=== PATIENT | female | born 2005 | race Caucasian/White ===

== ENCOUNTER 2024-12-09 08:13 | Outpatient (CLI) | payer BC, SELFPAY ==
--- NOTE | ~2024-12-09 | US_ITS ---
US breast BI limited 12/09/2024 08:36 Indication: Palpable breast lumps. Procedure: High-resolution Limited bilateral breast ultrasound Comparison: No prior studies for comparison. Findings: Right breast: At 2:00, 5 cm from the nipple there is an irregular shaped hypoechoic mass with heterog eneous internal echotexture measuring 1.5 x 0.8 x 1.5 cm. There is an echogenic internal component wi th subtle posterior shadowing. Left breast: At 10:00, 5 cm from the nipple there is an oval hypoechoic parallel oriented mass measur ing 1.6 x 1.4 x 0.9 cm without internal vascularity. There is posterior acoustic enhancement. Impression: 1: Bilateral masses corresponding to the areas of palpable concern. Recommend comparison to previous outside studies to assess stability. BI-RADS CATEGORY 0 - INCOMPLETE STUDY, NEED ADDITIONAL IMAGING EVALUATION. Reviewed, dictated and finalized at location [] Impression: 1: Bilateral masses corresponding to the areas of palpable concern. Recommend c omparison to previous outside studies to assess stability. BI-RADS CATEGORY 0 - INCOMPLETE STUDY, NEED ADDITIONAL IMAGING EVALUATION.
== END 2024-12-09 08:14 | disposition home or self-care (01) ==
LOC: MICIMG 08:13
PROVIDERS: PCP Obstetrics & Gynecology; Visit Provider Obstetrics & Gynecology
DX: R92.8 Other abnormal and inconclusive findings on diagnostic imaging of breast (principal)
CPT/HCPCS: 76642

== ENCOUNTER 2025-05-10 14:02 | Emergency (ER) | payer BC, SELFPAY ==
--- OUTSIDE RECORDS SUMMARY | 2025-04-08 05:44 | XMS_ITS | Continuity of Care Document ---
Author Organization [facility] Address [address] [place] [address] Phone Care Team Providers Care Senior Integration Architect Name Role Phone Skip SUAREZ, Tucker Unavailable Unavailable Allergies, Adverse Reactions, Alerts Substance Reaction Status Criticality DIPHENHYDRAMINE HCL Increased sedation Active No Information azithromycin HivesHives Active No Information Medications Medication Instructions Dosage Effective Dates (start - stop) Status Comments budesonide-formoter ol HFA 80 mcg-4.5 mcg/actuation aerosol inhaler inhale 2 puff by inhalation route 2 times every day in the morning and evening 2.00 puff - Active albuterol sulfate HFA 90 mcg/actuation aerosol inhaler inhale 2 puff by Inhalation route every 4 - 6 hours as needed 2 puff - Active Asmanex HFA 50 mcg/actuation aerosol inhaler inhale 2 puffs by inhalation route 2 times every day 2 puffs - Active Flonase Allergy Relief 50 mcg/actuation nasal spray,suspension spray 2 spray by intranasal route every day in each nostril 100-100 MCG - Active triamcinolone acetonide 0.1 % topical ointment apply by topical route 2 times every day a thin layer to the affected area(s) 0.00 - Active mesalamine 400 mg capsule (with delayed release tablets inside) take 1 capsule by oral route 2 times every day - Active fluoxetine 10 mg capsule take 1 capsule by oral route every day 10 MG - Active Cherrie Allergy 180 mg tablet take 1 tablet by oral route 2 times every day 180 MG - Active lamotrigine ER 50 mg tablet,extended release 24 hr - Active Symbicort 80 mcg-4.5 mcg/actuation HFA aerosol inhaler inhale 2 puff by inhalation route 2 times every day in the morning and evening 2.00 puff - No Longer Active Procedures Procedure Date Health Risk Assesment Patient Focused Au Est (Level 4) OFFICE/OUTPATIENT VISIT Au PF Pre/Post Bronchodlator Health Risk Assesment Patient Focused Ma Mouth piece Est (Level 4) OFFICE/OUTPATIENT VISIT Nj Flow Volume Loop Mouth piece Perc Test Intradermal Test New (Level 4) OFFICE/OUTPATIENT VISIT DENTAL RECEPTIONIST Registration Fee Advance Directives Directive Yes / No Effective Date File Name No Information Encounters Encounter Description Practice Location Reason(s) For Visit Diagnoses Date Provider Providers Copied on Encounter [facility], [address] [place] [address], [id number], tel:[phone] [facility] No Information Skip Ceballos. [address], [place], [address], [place]. tel:[phone] Referring Provider: Radha Dubon, [address], [place], [address]. tel:[phone] Est (Level 4) OFFICE/OUTPA TIENT VISIT [facility], [address] [place] [address], [id number], tel:[phone] [facility] allergies and asthma (chief complaint) Other allergic rhinitisMild intermittent asthma, uncomplicatedAto pic dermatitis Maddie Zacarias. [address], [place], [address], [place]. tel:[phone] Referring Provider: Radha Dubon, [address], [place], [address]. tel:[phone] [facility], [address] [place] [address], [id number], tel:[phone] [facility] No Information 5 Skip Cheshil. [address], [place], [place], [facility], [place]. tel:[phone] Referring Provider: Maximilian Metcalf, [address] [place] [address] [address], [place], [address]. tel:[phone] Est (Level 4) OFFICE/OUTPA TIENT VISIT [facility], [address] [place] [address], [id number], tel:[phone] [facility] allergy symptoms (chief complaint) Other allergic rhinitisMild intermittent asthma, uncomplicatedAto pic dermatitisBody mass index (BMI) 25.0-25.9, adultAcute sinusitis, unspecified 5 Maddie Zacarias. [address], [place], [address], [place]. tel:[phone] Referring Provider: Maximilian Metcalf, Replaced by [facility], [place], [address]. tel:[phone] New (Level 4) OFFICE/OUTPA TIENT VISIT [facility], [address] [place] [address], [id number], [place] tel:[phone] [facility] allergy symptoms (chief complaint) Chronic rhinitisMild intermittent asthma, uncomplicatedAto pic dermatitis Fe- 4 Skip Cheshil. [address], [place], [address], [place]. tel:[phone] Referring Provider: Radha Dubon, [address], [place], [address]. tel:[phone] [facility], [address] [place] [address], [id number], tel:[phone] [facility] No Information [facility]. . Referring Provider: [address], [place], [address]. tel:[phone] Family History Family Member Type Diagnosis Age At Onset Father Problem (finding) Seasonal allergy Father Problem (finding) Environmental allergy Grandmother Problem (finding) Cystic fibrosis Father Problem (finding) Asthma Mother Problem (finding) Seasonal allergy Mother Problem (finding) Environmental allergy Mother Problem (finding) Cystic fibrosis Payers Payer name Insurance type Covered alliance party ID Authoriza tidinora(s) RUST [id number] Social History Type Description Quantity Date Captured Comments Alcohol Use Details Unknown Caffeine Use Details Unknown Tobacco Use Status No Information Smoking Status No Information Sex Female Gender Identity Chief Complaint And Reason For Visit No Information Reason For Referral Reason For Referral No Information Plan Of Treatment Date Type Action Status Appointment Martha Tubbs 3 Mo F/up BOOKED History Of Present Illness Encounter Date Complaint History Of Prese nt Illness allergies and asthma LV 01/02/25LU has a history of rhinitis, asthma, and eczemaRhinitisThe patient has a history of perennial rhinitis with seasonal worsening in spring/fall. Reports that her allergies have been bothersome recently, for the past several weeks and she has been using cherrie daily, and continues to have congestion, postnasal drip, itchy throat. Reports using flonase in the past, however, this has made her nose runny, so she stopped using it. Has never tried azelastine nasal spray in the past. Was previously on singulair, which gave her mood changes so she stopped it about a year ago. Denies fever or chills. Was last on augmentin in 12/2024 for suspected sinusitis.AsthmaThe patient has asthma and is on airsupra, which she is taking just as needed prior to activity. They were diagnosed with asthma at age 16 yo. The patient has never been hospitalized for asthma. She is using her rescue inhaler anywhere from 2-4 times weekly. Denies nocturnal awakenings with cough/wheeze. No ED/PCP/UC visits and no oral steroid bursts because of asthma in the last year.Atopic DermatitisThe patient states that her eczema is well controlled at this time. She uses TAC 0.1% ointment, which is used as needed for flares, but has not used this in over 6 months. Patient bathes daily. Tide & Downy is used as a laundry detergent. She does use fabric softener. Avoiding irritants/ allergens helps to control her eczema flares.DataPercutaneous allergy testing on 10/24/23 was positive for trees, grasses, weeds, molds, horse, and mouse with positive histamine and negative diluent controls. Intradermal testing was positive for ragweed, mold, and dog with a negative diluent controlSpirometry 10/24/23 normal/04/21PFT Mild airway obstruction. Post bronchodilator test improved with FEV1 improved from 80% to 91% predicted allergy symptoms LV 10/24/2023LU has a history of rhinitis, asthma, and eczemaRhinitisThe patient has a history of perennial rhinitis with seasonal worsening in spring/fall. Reports that her allergies have been awful recently, for the past several weeks and she has been using cherrie daily, and continues to have itchy/watery eyes, congestion, postnasal drip, shortness of breath, and extreme fatigue. She is also using visine eye drops daily for ocular pruritis. Reports using flonase in the past, however, this has made her nose runny, so she stopped using it. Has never tried azelastine nasal spray in the past. Was recently on keflex for cellulitis of her toe/ paronychia, No interval use of steroids or abx for sinusitis. Was previously on singulair, which gave her mood changes so she stopped it about a year ago. Denies fever or chills.AsthmaThe patient has asthma and is on airsupra, which she is taking just as needed prior to activity. They were diagnosed with asthma at age 16 yo. The patient has never been hospitalized for asthma. She reports EIB and symptoms worsened in cold weather. They deny nocturnal awakenings with cough/wheeze. No ED/PCP/UC visits and no oral steroid bursts because of asthma in the last year.Atopic DermatitisThe patient states that her eczema is well controlled at this time. She uses TAC 0.1% ointment, which is used as needed for flares, but has not used this in over 6 months. Patient bathes daily. Tide & Downy is used as a laundry detergent. She does use fabric softener. Avoiding irritants/ allergens helps to control her eczema flares.DataPercutaneous allergy testing on 10/24/23 was positive for trees, grasses, weeds, molds, horse, and mouse with positive histamine and negative diluent controls. Intradermal testing was positive for ragweed, mold, and dog with a negative diluent controlSpirometry 10/24/23 normal allergy symptoms RhinitisThe pat celso has a history of perennial rhinitis with seasonal worsening in spring/fall. The symptoms include nasal congestion, facial pressure, post-nasal drainage w/ ocular pruritus and tearing. Currently, the patient is on fexofenadine (cherrie) 180 mg daily (held x 7 days), montelukast (singulair) 10 mg daily, Flonase 2 SEN PRN (used about once or twice monthly), which does not provide adequate relief. The patient does have a history sinus infections, about 1-2 times per year requiring abx.She has never had allergy testing in the past.AsthmaThe patient has asthma on montelukast (singulair) 10 mg daily, and albuterol PRN (used prior to exertion). They were diagnosed with asthma at age 16 yo. The patient has never been hospitalized for asthma. She reports EIB and symptoms worsened in cold weather. They deny nocturnal awakenings with cough/wheeze. No ED/PCP/UC visits and no oral steroid bursts because of asthma in the last year.Atopic DermatitisThe patient has lesions on AC fossae, popliteal fossae. They use Cetaphil as a moisturizer, used daily. They also have TAC 0.1% ointment, which is used as needed for flares. Patient bathes daily. Tide & Downy is used as a laundry detergent. She does use fabric softener. PMH: anxiety, CF, otherwise as abovePSH: wisdom teeth extractionMedication Allergies:Azithromycin - Hives when a baby. She had generalized urticaria quickly after the first dose. Benadryl - increased sedationFHAsthma - ?dadRhinitis - momCF - mom, mat GMSHTobacco: Never smoker or vaperOccupation: CNAJunior in College at [employer], studying nursingEnvironmental HistoryLives in a house (built 1949) w/ central air/forced heat, w/o evidence of mold/water damageFlooring in Bedroom: hard flooringPets: dogs x 2DataI reviewed outside records available in the EMR Functional Status Date Functional Assessmen t No Information Instructions Date Instruction Additional Infor brenda Giving encouragement to exercise Related to Body mass index [BMI] 25.0-25.9, adult Skin Care Instructio ns====*Please use moisturizers on skin 4-6 times per day*Please bathe once per day. Soak for 20-30 minutes in lukewarm water. After bathing, dry off only partially by patting with a towel. Within 3 minutes, apply topical medication to red, itchy areas. Apply moisturizers to other areas*Use topical medications 1-2 times daily on flared (red/itchy) skin; you may use these topical medications twice weekly on healthy skin in locations that typically flare (ex: ankles, crook of elbow) to prevent flares====Products (as recommended to me by my patients):*Please try to use products that are scent-free or fragrance-free. Products labeled unscented sometimes use additives to neutralize a scent*Moisturizers: plain Vaseline (petrolatum or petroleum jelly), Cetaphil lotion, Aquaphor, or Vanicream*Laundry Detergents: Free & Clear labeled such as All or 7th Generation*Soaps: Dove Sensitive Skin Bar Soap, Vanicream bar soap, Cetaphil Cleanser Related to Atopic dermatitis - use Flonase 2 spra ys each nostril daily- resume cherrie 180 mg daily- Please remember to point the nasal spray away from the nasal septum, up and outwards towards the top of the ears on both sides- if nose bleeding occurs, please hold the nasal spray for 2-3 days to allow for healing of the nasal tissue (you may use nasal saline gel or vaseline on a q-tip to help heal the tissue), then restart the nasal spray.- If nose bleeding recurs, please stop the nasal spray and contact our office to set up an appointment for further guidance Related to Chronic rhinitis - use Airsupra 2 puf fs every 4 hours as needed for cough, wheeze, and shortness of breath. Also, use 2 puffs 20 min before exercise (do not use more than 12 puffs in 24 hours) Related to Mild intermittent asthma, uncomplicated Assessments Type Assessment Date No Information Patient Care Teams Name Effective Dates (start - stop) Status Members No Information
[2025-05-10] VITALS (7 sets, daily range): BP systolic 105–167; BP diastolic 61–98; PULSE 83–134; RESP 15–22; TEMP 36.6–36.8; O2SAT 98–100
--- NOTE | ~2025-05-10 | XR_ITS ---
EXAMINATION: XR chest 2V, 05/10/2025 14:55 CDT HISTORY: sob COMPARISON: No comparisons available. Technique: 2 views obtained. Findings: The lungs are clear, no effusion. No pneumothorax. Heart is normal size. Mediastinal and hilar contours are within normal limits. Bony thorax no acute abnormality. Impression: No acute cardiopulmonary abnormality. Reviewed, dictated and finalized at location A. Impression: No acute cardiopulmonary abnormality.
--- OUTSIDE RECORDS SUMMARY | 2025-05-10 14:04 | XMS_ITS | Encounter Summary ---
Author Organization [facility] Address [address] [place] [address] Care Team Providers Care Mud Trucker Name Role Phone Oscar Blake MD Primary Care Provider [phone] Encounter Details Date Type Department Care Team (Late Contact Info) Description 02/17/2025 [employer] Message Enc [address], [address] [place] [phone] Mychart, [facility] Provider evie Social History Tobacco Use Types Packs/Day Years Used Date Smoking Tobacco: Never Smokeless Tobacco: Never Alcohol Use Standard Drinks/Week Comments Never 0 (1 standard drink = 0.6 oz pur e alcohol) PHQ-2 Answer Date Recorded Patient Health Questionnaire-2 Score 0 02/12/2025 Comments No Sex and Gender Information Value Date Recorded Sex Assigned at Female 09/19/2024 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 [place] [address] Keith Garrett MD [address] [place] [address] documented as of this encounter Visit Diagnoses Not on filedocumented in this encounter Additional Health Concerns Assessment Noted Time PHQ-9 Depression Total Score: 21 024 1:19 PM CDT documented as of this encounter Care Teams Mud Trucker Relationship Specialty Start Date End Date Oscar Blake MD [address] [place] [address] PCP - General INTERNAL MEDICINE 10/13/23 documented as of this encounter
--- OUTSIDE RECORDS SUMMARY | 2025-05-10 14:04 | XMS_ITS | Encounter Summary ---
Author Organization [facility] Address [address] [place] [address] Care Team Providers Care In Store Marketing Associate Name Role Phone Oscar Blake MD Primary Care Provider [phone] Encounter Details Date Type Department Care Team (Late Contact Info) Description 01/14/[address] Message Enc [facility] [address], [address] [place] [phone] Mychart, 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 Family & Internal Medicine - [address] [phone] Oscar Blake MD [address] [place] [address] 02/11/2026 1:40 PM CDT Office Visit [facility] [address] [place] [address] Keith Garrett MD [address] [place] [address] documented as of this encounter Visit Diagnoses Not on filedocumented in this encounter Additional Health Concerns Infection Onset Date Last Indicated Resolved Time Respiratory Rule Out 02/06/2025 02/06/2025 025 2:10 PM CDT Assessment Noted Time PHQ-9 Depression Total Score: 21 024 1:19 PM CDT documented as of this encounter Care Teams In Store Marketing Associate Relationship Specialty Start Date End Date Oscar Blake MD [address] [place] [address] PCP - General INTERNAL MEDICINE 10/13/23 documented as of this encounter
--- OUTSIDE RECORDS SUMMARY | 2025-05-10 14:04 | XMS_ITS | Clinical Summary ---
Author Organization [facility] Address [address] [place] [address] Care Team Providers Care Director Of Automation Name Role Phone Oscar Blake MD Primary Care Provider [phone] Allergies Active Allergy Reactions Criticality Noted Date Comments Erythromycin Rash Medium 01/25/2017 Rash Medications albuterol HFA (PROVENTIL HFA,VENTOLIN HFA,PROAIR HFA) 90 mcg/actuation inhaler INHALE 2 PUFFS BY MOUTH UP TO EVERY 4 HOURS BEFORE EXERCISE NEEDED 02/16/20 23 Active Allergy Relief, fexofenadine, 180 mg tablet TAKE 1 TABLET BY MOUTH EVERY DAY FOR 90 DAYS 04/14/20 23 Active albuterol-budeson adriano (Airsupra) 90-80 mcg/actuation HFA aerosol inhaler Inhale 2 puffs every 6 (six) hours as needed Active SUMAtriptan (IMITREX) 100 mg tablet Take 1 tablet at onset of symptoms, may repeat in 2 hours later if needed. Max of 2 tablets in 24-hour period. 03/29/20 24 Active buPROPion XL (WELLBUTRIN XL) 300 mg 24 hr tablet 05/19/20 24 Active copper (PARAGARD) 380 square mm IUDIndications:Pr egnancy Contraception 1 each by intrauterine route once Active ibuprofen (ADVIL,MOTRIN) 600 mg tablet Take 1 tablet (600 mg total) by mouth every 6 (six) hours as needed for pain 30 tablet 07/14/20 24 Active gabapentin (NEURONTIN) 100 mg capsule TAKE 1 TO 2 CAPSULES BY MOUTH DAILY NEEDED FOR ANXIETY 07/23/20 24 Active lamoTRIgine (LaMICtal) 25 mg tablet Take 1 tablet (25 mg total) by mouth 2 (two) times a day 07/18/20 24 Active medroxyPROGESTERo ne (PROVERA) 10 mg tablet Take 1 tablet (10 mg total) by mouth daily 30 tablet 08/19/20 24 025 Active Active Problems Problem Noted Date Diagnosed Date Dermoid cyst of ovary 07/14/2024 Sensation of fullness in both ears 02/07/2022 Impacted cerumen of left ear 02/07/2022 Dysmenorrhea 12/11/2020 Surgical History Surgery Date Site/Laterality Comments WISDOM TOOTH EXTRACTION BREAST BIOPSY 04/05/2023 Right BREAST BIOPSY 04/05/2023 Right Medical History Medical History Date Comments Allergic rhinitis Anxiety and depression Family History Medical History Relation Name Comments No Known Problems Father Pancreatic cancer Maternal Grandfather No Known Problems Mother Colon cancer Other M great grandfether Breast cancer Neg Hx Diabetes Neg Hx Hypertension Neg Hx Ovarian cancer Neg Hx Prostate cancer Neg Hx Uterine cancer Neg Hx Relation Name Status Comments Father Maternal Grandfather Maternal Great-Grandfather Alive Mother Other M great grandfether Alive Social History Tobacco Use Types Packs/Day Years Used Date Smoking Tobacco: Never Smokeless Tobacco: Never Tobacco Cessation:Counseling Given: Not Answered Personal Safety Answer Date Recorded Have you ever been in or are you currently in a harmful physical or emotional relationship or is someone making you feel afraid or unsafe? Denies 07/14/2024 Comments No Sex and Gender Information Value Date Recorded Sex Assigned at Not on file Legal Sex Female 8:45 AM CDT Gender Identity Female 12/11/2020 2:09 PM CDT Sexual Orientation Straight 12/11/2020 2: 09 PM CDT Obstetrics History Para Term AB IAB SAB Ectopic Multiple Livin g Live Births 0 0 0 0 0 0 0 0 0 0 0 Comments Age of 1st cycle: 8 Last Filed Vital Signs Vital Sign Reading Time Taken Comments Blood Pressure 120/82 07/29/2024 1:54 PM RUBBER GASKET INSPECTOR TRIMMER Pulse 75 07/14/2024 6:45 PM RUBBER GASKET INSPECTOR TRIMMER Temperature 37.4 C (99.4 F) 07/14/2024 6:15 PM RUBBER GASKET INSPECTOR TRIMMER Respiratory Rate 19 07/14/2024 6:15 PM RUBBER GASKET INSPECTOR TRIMMER Oxygen Saturation 100% 07/14/2024 6:45 PM RUBBER GASKET INSPECTOR TRIMMER Inhaled Oxygen Concentration - - Weight 65.3 kg (144 lb) 07/29/2024 1:54 PM RUBBER GASKET INSPECTOR TRIMMER Height 160 cm (5' 3) 07/29/2024 1:54 PM RUBBER GASKET INSPECTOR TRIMMER Body Mass Index 25.51 07/29/2024 1:54 PM RUBBER GASKET INSPECTOR TRIMMER Plan of Treatment Health Maintenance Due Date Last Done Comments Cervical Cancer Screening 2003 Depression Screening 2003 Pneumococcal vaccine <65 (1 of 1 - PPSV23, PCV20, or PCV21) 2009 05/11/2004, 02/09/2004, 2003, Additional history exists HPV Vaccines (1 - 3-dose series) 2018 Chlamydia and Gonorrhea (GC/ CT) Screening 05/24/2024 05/24/2023, 06/30/2022 Regular Well Visit/Exam 18-64 05/24/2024 05/24/2023, 01/25/2022 DTaP/Tdap/Td Vaccine (7 - Td or Tdap) 04/16/2025 04/16/2015, 04/06/2009, 11/09/2004, Additional history exists Covid-19 Vaccine (4 - 2024-2 6 season) 2025 07/01/2021, 11/21/2020, 10/31/2020 Influenza Vaccine (#1) 2025 , 06/03/2021, 06/19/2020, Additional history exists Varicella Vaccines Completed 04/06/2009, 05/11/2004 Hepatitis C Screening Completed 06/30/2022 Hepatitis B Screening Completed 01/31/2023 , 2003, 2003, Additional history exists Meningococcal B Vaccine Completed 04/14/2023, 04/07 Medical Devices Implanted Type Area Spacecraft Systems Engineer Device Identifier Shelf Expiration Date Model / Serial / Lot Other - See Comments Implanted:Qty: 1 Other - see comments Uterus Procedures Procedure Name Priority Date/Time Associated Diagnosis Comments N. GONORRHOEAE/C. TRACHOMATIS AMPLIFICATION Routine 05/24/2023 4:05 PM CDT Routine screening for STI (sexually transmitted infection) HEPATITIS PANEL, ACUTE Routine 1:54 PM CDT Routine screening for STI (sexually transmitted infection) from Last 3 Months or Most Recently Relevant to Health Maintenance Results * N. gonorrhoeae/C. trachomatis Amplification Vaginal (05/24/2023 4:05 PM CDT) C. trachomatis Not Detected Not Detected LETICIA GALVEZ Comment:Testing performed by : [facility], [address] [place] [address]., [id number] N. gonorrhoeae Not Detected Not Detected LETICIA GALVEZ Comment: Interpretive Data Testing performed by the [facility]. This assay detects Chlamydia trachomatis and Neisseria gonorrhoeae by nucleic acid amplification testing (NAAT). This test is approved by the [facility] Food and Drug Administration and the performance characteristics have been verified by the laboratory. The performance characteristics of this test have not been evaluated in individuals less than 14 years of age. Current Interpretive Data was last revised on 2019. Testing performed by: [facility], [address] [place] [address]., [id number] Vaginal 05/24/2023 4:05 PM CDT 05/25/2023 8:42 PM CDT us Radha Mcqueen MD LAB MICROBIOLOGY - GENERAL ORDERABLES Final Result LETICIA [id number] [facility] Department [place] [address] * Hepatitis panel, acute (06/30/2022 1:54 PM CDT) Hep A IgM Nonreactive Nonreactive LETICIA GALVEZ Comment: Interpretive Data: If Hep A IgM Ab is reported as Equivocal, a new sample should be drawn in two weeks for testing. Current interpretive data was last revised on 19. Hep B core IgM Nonreactive Nonreactive GILBERTANANT Comment: Interpretive Data If HepB Core IgM Ab is reported as Equivocal, a new sample should be drawn in two weeks for testing. Current interpretive data was last revised on 19. Hep C Ab Nonreactive Nonreactive [facility] Comment: Interpretive Data Nonreactive: Antibodies to HCV not detected. Does NOT exclude the possibility of recent exposure to HCV. Equivocal: Equivocal for HCV antibodies. Supplemental molecular testing will be automatically performed to determine infection status in accordance with current CDC screening recommendations. Reactive: Positive for HCV antibodies. This may represent current or past HCV infection. Supplemental molecular testing will be automatically performed to determine current infection status in accordance with current CDC screening recommendations. Interpretive data was last revised on 2019. HepBsAg Nonreactive Nonreactive [facility] Blood 06/30/2022 1:54 PM CDT 06/30/2022 7:06 PM CDT Radha Mcqueen MD LAB MICROBIOLOGY - GENERAL ORDERABLES Final Result LETICIA [address] [facility] Department of Laboratories [place], [place] [id number] from Last 3 Months or Most Recently Relevant to Health Maintenance Insurance [facility] [id number] [email or web address] [email or web address] [place] Sub[place] Plan / Payer ( fective 2021-) Name:Onelia Tubbsboris Ronak Relation to Subscriber:Child Name:ERICABETH Boris Date of :1976 (Home) Address: [facility] [place] [address] Payer ID:[id number] (NAIC) Type:BC OTHER Address: [address] Care Teams Director Of Automation Relationship Specialty Start Date End Date Oscar Blake MD [address] [place] [address] PCP - General Internal Medicine 03/04/24
--- OUTSIDE RECORDS SUMMARY | 2025-05-10 14:04 | XMS_ITS | Encounter Summary ---
Author Organization [facility] Address [address] [place] [address] Care Team Providers Care Medical Instrument Technician Name Role Phone Cassidy Busby MD, Miguel A Primary Care Provider [phone] Oscar Blake MD Primary Care Provider [phone] Encounter Details Date Type Department Care Team (Late st Contact Info) Description 04/04/2023 Hospital Orders Only [facility] Med/Surg 3rd Floor [address] [place], [place] [id number] Manpreet Kay MD [facility] [address] Social History Tobacco Use Types Packs/Day Years Used Date Smoking Tobacco: Never Assessed Comments No Sex and Gender Information Value Date Recorded Sex Assigned at Female 09/19/2024 9:13 AM ENERGY AUDITOR Legal Sex Female 10:55 PM CDT Gender Identity Not on file Sexual Orientation Not on file documented as of this encounter H&P Notes * Manpreet Kya MD - 04/04/2023 7:40 AM CDT Martha Tubbs 17-year-old female Date of Service: 04/04/2023 CHIEF COMPLAINT: Right breast mass HPI: Presents with self palpated right breast mass. No prior breast procedures. No other symptoms. PMH: No past medical history on file. Asthma PSH: No past surgical history on file. Otis teeth removal ALL: Allergies Allergen Reactions Erythromycin Rash Rash MEDS: Current: No blood thinners or anti-inflammatories Prior to Admission medications Medication Sig Start Date End Date Taking? Authorizing Provider ondansetron (ZOFRAN-ODT) 4 MG disintegrating tablet Take 1 tablet (4 mg total) by mouth every 8 (eight) hours as needed for Nausea. 05/30/22 Laure Muhammad MD Social History Socioeconomic History Marital status: Single Family History Problem Relation Name Age of Onset Brain cancer Paternal Grandmother Pancreatic cancer Maternal Grandfather REVIEW OF SYSTEMS: 12 system review is negative aside from that mentioned in the HPI and PMH/PSH. PHYSICAL EXAM: There were no vitals filed for this visit. Physical Exam Alert oriented no distress chest clear heart regular abdomen soft nontender right breast mass 2 o'clock position 1 cm mass LABS: No results for input(s): WBC, RBC, HGB, HCT, NA, K, CL, CO2, AGAP, BUN, CR, BUNCREATININ, GFRNON, GFR, GLU, CA, TP, ALB, TBIL, ALKP, AST, ALT, LIPASE in the last 168 hours. IMAGING: Right breast 1.8 cm lobulated hypoechoic mass at 2 o'clock position 6 cm from nipple measures 1.8 x1.4 x 1.1 cm. IMPRESSION: Right breast mass PLAN: Risks benefits ultrasound-guided biopsy reviewed with patient and she agrees to proceed MANPREET KAY MD 04/04/2023 documented in this encounter Plan of Treatment Upcoming Encounters Date Type Department Care Team (Late st Contact Info) Description 05/29/2025 8:40 AM CDT Laboratory Only [facility] Family & Internal Medicine - [address] [phone] Oscar Blake MD [address] [place] [address] 02/11/2026 1:40 PM CDT Office Visit [facility] Multispecialty Care - [address] [place] [address] Keith Garrett MD [address] [facility] [address] [place] [address] documented as of this encounter Visit Diagnoses Not on filedocumented in this encounter Additional Health Concerns Infection Onset Date Last Indicated Resolved Time Respiratory Rule Out 02/06/2025 02/06/2025 025 2:10 PM CDT documented as of this encounter Care Teams Medical Instrument Technician Relationship Specialty Start Date End Date Miguel A Benjamin MD [address] [facility] [address] [place] [address] PCP - General PEDIATRICS 05/29/22 10/12/23 Oscar Blake MD [address] [place] [address] PCP - General INTERNAL MEDICINE 10/13/23 documented as of this encounter
--- OUTSIDE RECORDS SUMMARY | 2025-05-10 14:04 | XMS_ITS | Clinical Summary ---
Author Organization [facility] Address [facility] [place] [address] Care Team Providers Care Bread Wrapper Operator Name Role Phone Oscar Blake MD Primary Care Provider [phone] Allergies Active Allergy Reactions Criticality Noted Date Comments Azithromycin Hives 10/24/2023 Desvenlafaxine Hives,Nausea and Vom iting,Shortness of Breath High 04/24/2024 Diphenhydramine Other (see comment) 10/24/2023 Erythromycin Rash Medium 01/25/2017 Rash Medications ondansetron (ZOFRAN-ODT) 4 MG disintegrating tablet Take 1 tablet (4 mg total) by mouth every 8 (eight) hours as needed for Nausea. 20 tablet 05/30/20 22 Active fexofenadine (ROSEMARY) 180 MG tablet TAKE 1 TABLET BY MOUTH EVERY DAY FOR 90 DAYS 04/14/20 23 Active Albuterol-Budesoni de (AIRSUPRA) 90-80 MCG/ACT Aerosol Inhale 2 puffs into the lungs every 6 (six) hours as needed. Active SUMAtriptan (IMITREX) 100 MG tabletIndications: Migraine Take 1 tablet at onset of symptoms, may repeat in 2 hours later if needed. Max of 2 tablets in 24-hour period. 10 tablet 03/29/20 24 Active ibuprofen (MOTRIN) 600 MG tablet Take 1 tablet (600 mg total) by mouth every 6 (six) hours as needed. Active FLUoxetine (PROZAC) 10 MG tablet Take 1 tablet (10 mg total) by mouth daily. 11/06/19 25 Active levonorgestrel (MIRENA, 52 MG,) 20 MCG/DAY IUD 1 Intra Uterine Device by Intrauterine route once. Active mesalamine DR (DELZICOL) 400 MG capsuleIndications :IBD (inflammatory bowel disease) Take 1 capsule (400 mg total) by mouth 3 (three) times daily. 270 capsule 3 02/13/20 25 026 Active lamoTRIgine (LAMICTAL) 100 MG tablet Take 1 tablet (100 mg total) by mouth 2 (two) times daily. 02/14/20 Active Active Problems Problem Noted Date Diagnosed Date Family history of colon cancer 04/26/2024 Lower abdominal pain 04/26/2024 Change in bowel function 04/26/2024 Exercise-induced asthma (HHS/HCC) 11/21/2023 Anxiety 11/21/2023 Depression 11/26/2021 Dysmenorrhea 12/11/2020 Encounters Date Type Department Care Team Description 04/10/2025 MyChart Message Enc [facility] Family Internal [address] [address] Oscar Blake MD Labs ordered 04/09/2025 9:20 AM CDT Allied Health/Nurse Visit [facility] Internal [address] [address] Oscar Blake MD Tuberculosis (Tb test read) 04/09/2025 Travel 04/07/2025 2:00 PM CDT Allied Health/Nurse Visit [facility] Internal [address] [address] Oscar Blake MD Allied Health Visit (TB skin test) 04/07/2025 Travel 03/29/2025 MyChart Message Enc [facility] Internal [address] [address] Oscar Blake MD Vitamins/Hormones 03/03/2025 10:00 AM CDT Office Visit [facility] Internal [address] [address] Oscar Blake MD Physical 03/03/2025 Travel 02/17/2025 MyChart Message Enc [facility] Multispecialty Care - [facility] [address] [place] [phone] [facility], [facility] Provider [email or web address] 02/12/2025 1:00 PM CDT [facility] [address] [place] [phone] Keith Garrett MD Follow Up (pentasa) 02/12/2025 Travel from Last 3 Months Immunizations Immunization Administration Dates Next Due [id number]-[id number] (Pediarix) 2003 Dtap (Generic) 04/06/2009, 5,2003,06/29 FLUCELVAX (ccIIV3, TRIVALENT, 0.5mL) 05/24/2024 HPV GARDASIL 9-VALENT 06/07/2018,05/18/2017 Hepatitis A (Havrix [address]) 04/07/2022, 021 Hepatitis B 2003,2003 Hepatitis B(Engerix B Adult) 01/31/2023 Hib Vaccine, Hboc 08/17/2004, 4,2003,06/29 Influenza (Generic) 06/03/2021, 0,09/04/2019,05/28,10/04/2016 Influenza Adult (Generic) 05/31/2023 MENINGOCOCCAL A C Y&W-135 oligosaccharide (MENVEO) 09/04/2019,04/16/2015 MMR (MMRII) 04/06/2009,08/17/2004 Meningcoccal Group B (Bexser o)(aka Meningitis) 04/14/2023,04/07/2022 PFIZER COVID-19 (12+) MRNA, LNP-S, PF, SHONNA-SUCROSE, 30 MCG/0.3 ML (COMIRNATY) 05/24/2024 Pneumococcal (Prevnar 20) 03/03/2025 Pneumococcal (Prevnar 7) 05/11/2004,01/26,2003,06/29 Polio IPV (Ipol) 04/06/2009,2003, 3 Tdap (Adacel) 04/07/2025 Tdap (Generic) 04/16/2015 Varicella (Varivax) 04/06/2009,05/11/2004 Family History Medical History Relation Comments Depression Maternal Aunt Eating disorder Maternal Aunt Hypothyroidism Maternal Aunt Mental Health Maternal Aunt Miscarriages / Stillbirths Maternal Aunt OCD Maternal Aunt Tremor Maternal Aunt Pancreatic cancer Maternal Grandfather Alzheimer's disease Maternal Grandmother Miscarriages / Stillbirths Maternal Grandmother None Maternal Grandmother Alzheimers disease Parkinson's Disease Maternal Grandmother Fibrocystic breast disease Mother Migraines Mother abdominal migrai jose d Hyperthyroidism Paternal Aunt Brain cancer Paternal Grandmother Glioblastom a Anxiety Sister Depression Sister Mental Health Sister Cancer Neg Hx Colon cancer Relation Status Comments Father Alive Maternal Aunt Alive Maternal Grandfather Maternal Grandmother Alive Mother Alive Paternal Aunt Alive Paternal Grandfather Alive Paternal Grandmother Sister Alive Social History Tobacco Use Types Packs/Day Years Used Date Smoking Tobacco: Never Smokeless Tobacco: Never Tobacco Cessation:Counseling Given: Not Answered Alcohol Use Standard Drinks/Week Comments Yes 1.7 (1 standard drink = 0.6 oz p ure alcohol) Every once in a while PHQ-2 Answer Date Recorded Patient Health Questionnaire-2 Score 0 02/12/2025 Comments No Sex and Gender Information Value Date Recorded Sex Assigned at Female 09/19/2024 9:13 AM LIQUEFIER Legal Sex Female 10:55 PM CDT Gender Identity Not on file Sexual Orientation Not on file Last Filed Vital Signs Vital Sign Reading Time Taken Comments Blood Pressure 102/70 03/03/2025 10:15 AM CDT Pulse 77 03/03/2025 10:15 AM CDT Temperature 36.7 C (98.1 F) 03/03/2025 10:15 AM CDT Respiratory Rate 16 03/03/2025 10:1 5 AM CDT Oxygen Saturation 98% 03/03/2025 10: 15 AM CDT Inhaled Oxygen Concentration - - Weight 65.6 kg (144 lb 11.2 oz) 025 10:15 AM CDT Height 160 cm (5' 3) 03/03/2025 10:15 AM CDT Body Mass Index 25.63 03/03/2025 10:15 AM CDT Plan of Treatment Upcoming Encounters Date Type Department Care Team (Late st Contact Info) Description 05/29/2025 8:40 AM CDT Laboratory Only [facility] Family & Internal Medicine - [place] [address] [place] [address] Oscar Blake MD [address] [place] [address] 02/11/2026 1:40 PM CDT Office Visit [facility] Multispecialty Care - [address] [place] [address] Keith Garrett MD [address] [place] [address] [address] [place] [address] Health Maintenance Due Date Last Done Comments Hepatitis C 2021 Chlamydia Screening Females ages 16-24 05/24/2024 05/24/2023 Annual Physical 03/03/2026 03/03/2025, 11/21/2023 Cervical Cancer Screening Pap Smear (Age 21 to 29) Every 3 Years 05/24/2026 05/24/2023 Cervical Cancer Screening 05/24/2026 DTaP, Tdap and Td Vaccines (8 - Td or Tdap) 04/07/2035 04/07/2025, 04/16/2015, 04/06/2009, Additional history exists HPV Vaccines Completed 06/07/2018, 05/18/2017 Meningococcal Vaccine Completed 09/04/2019, 015 Hepatitis B Vaccines Completed 01/31/2023, 2003, 2003, Additional history exists Meningococcal B Vaccine Completed 04/14/2023, 04/07 COVID-19 Vaccine Completed 05/24/2024, , 06/29/2022, Additional history exists PHQ-2 (Physician Chloe) Completed 02/12/2025 Pneumococcal Vaccine: Pediatrics (0 to 5 Years) and At-Risk Patients (6 to 49 Years) Completed 03/03/2025, 05/11/2004, 02/09/2004, Additional history exists RSV Immunizations Under 20 Months Aged Out No longer eligible based on patient's age to complete this topic Medical Devices Implanted Type Area Hardwood Sawyer Device Identifier Shelf Expiration Date Model / Serial / Lot Iud Procedures Procedure Name Priority Date/Time Associated Diagnosis Comments TB INTRADERMAL TEST (BACK OFFICE) Routine 04/07/2025 2:10 PM CDT Screening-pulmonary TB from Last 3 Months Results * TB INTRADERMAL TEST (BACK OFFICE) (04/07/2025 2:10 PM CDT) MM INDURATION 0 PPD SKIN TEST Negative NOT REQUIRED 04/07/2025 2:10 PM CDT Oscar Blake MD MICROBIOLOGY - GENERAL ORDERAB LES Final Result from Last 3 Months Insurance [facility] Care Teams Bread Wrapper Operator Relationship Specialty Start Date End Date Oscar Blake MD [address] [place] [id number] PCP - General INTERNAL MEDICINE 10/13/23
--- OUTSIDE RECORDS SUMMARY | 2025-05-10 14:04 | XMS_ITS | Encounter Summary ---
Author Organization [facility] Address [address] [place] [address] Care Team Providers Care Management Supervisor Name Role Phone Oscar Blake MD Primary Care Provider [phone] Encounter Details Date Type Department Care Team (Late Contact Info) Description 05/27/2024 Raven Power Financet Message Enc [facility] Family & Internal Medicine [place] [id number] [place] [address] [facility] Provider Results Social History Tobacco Use Types Packs/Day Years Used Date Smoking Tobacco: Never Smokeless Tobacco: Never Alcohol Use Standard Drinks/Week Comments Never 0 (1 standard drink = 0.6 oz pur e alcohol) PHQ-2 Answer Date Recorded Patient Health Questionnaire-2 Score 4 2024 Comments No Sex and Gender Information Value Date Recorded Sex Assigned at Female 09/19/2024 9:13 AM FIRER BOILER Legal Sex Female 10:55 PM CDT Gender Identity Not on file Sexual Orientation Not on file documented as of this encounter Plan of Treatment Upcoming Encounters Date Type Department Care Team (Late Contact Info) Description 05/29/2025 8:40 AM CDT Laboratory Only [facility] Family & Internal Medicine [facility] [address] [place] [address] Oscar Blake MD [address] [place] [phone] 02/11/2026 1:40 PM CDT Office Visit [facility] Multispecialty Care - [address] [place] [address] Keith Garrett MD [address] [place] [address] documented as of this encounter Visit Diagnoses Not on filedocumented in this encounter Additional Health Concerns Infection Onset Date Last Indicated Resolved Time Respiratory Rule Out 02/06/2025 02/06/2025 025 2:10 PM CDT Assessment Noted Time PHQ-9 Depression Total Score: 21 024 1:19 PM CDT documented as of this encounter Care Teams Management Supervisor Relationship Specialty Start Date End Date Oscar Blake MD [address] [place] [id number] PCP - General INTERNAL MEDICINE 10/13/23 documented as of this encounter
--- NOTE | 2025-05-10 14:09 | ECG_ITS ---
Test Date: 2025-05-10 14:13:09 Measurements Intervals [place] Rate: 134 P: 73 ID: [id number] QRS: 113 QRSD: 87 T: 19 QT: 301 QTc: 450 Interpretive Statements SINUS TACHYCARDIA WITH SHORT ID INTERVAL LEFT POSTERIOR FASCICULAR BLOCK [QRS AXIS > 109, INFERIOR Q] NONSPECIFIC ST ABNORMALITY ABNORMAL ECG No previous ECG available for comparison Electronically Signed On 05-11-2025 09:34:12 CDT by Alex Trujillo M.D.
[2025-05-10 14:25] LABS: Hematocrit 43.3 % (37.0-47.0); Hemoglobin 15.5 g/dL (12.0-15.0); Immature Granulocyte Percent A 0.2 % (0-0.5); Lymphocytes Absolute Auto 2.00 K/mm3 (0.9-3.2); Mean Corpuscular HGB Conc 35.8 g/dl (32-36); Mean Corpuscular Hemoglobin 31.6 pg (26-34); Mean Corpuscular Volume 88.2 fl (80-100); Nucleated Red Blood Cells Absolute Auto 0.000 K/mm3 (0.0-0.012); Nucleated Red Blood Cells Perc 0.0 % (0.0-0.2); Platelet Count Result 336 k/mm3 (150-375); Red Blood Count 4.91 M/mm3 (4.2-5.4); White Blood Count 6.5 K/mm3 (4.5-10.0)
[2025-05-10 14:45] LABS: Alanine Aminotransferase 19 U/L (6-35); Albumin Level 5.0 g/dL (3.5-5.1); Alkaline Phosphatase 83 U/L (38-126); Anion Gap 14 mmol/L (4-12); Aspartate Amino Transferase 31 U/L (14-36); Bilirubin,Total 1.1 mg/dL (0.2-1.3); Blood Urea Nitrogen 11 mg/dL (7-17); Calcium 9.6 mg/dL (8.4-10.2); Carbon Dioxide 21 mmol/L (22-30); Chloride 102 mmol/L (98-107); Estimated CRCL calculation 71 ml/min; Estimated Glomerular Filt Rate > 60; Glucose 105 mg/dL (65-110); Potassium 3.9 mmol/L (3.4-5.0); Sodium 137 mmol/L (137-145); Total Protein 8.6 g/dL (6.3-8.2)
[2025-05-10 14:56] LABS: Troponin I < 0.012 ng/mL (0.000-0.034)
--- OUTSIDE RECORDS SUMMARY | 2025-05-10 15:06 | XMS_ITS | Encounter Summary ---
Author Organization [facility] Address [address] [place] [address] Care Team Providers Care Psychology Assistant Name Role Phone Oscar Blake MD Primary Care Provider [phone] Encounter Details Date Type Department Care Team (Late Contact Info) Description 01/14/2025 [employer] [facility] - [address], [address] [place] [phone] Mychart, [facility] Provider new date/time Social History Tobacco Use Types Packs/Day Years Used Date Smoking Tobacco: Never Smokeless Tobacco: Never Alcohol Use Standard Drinks/Week Comments Never 0 (1 standard drink = 0.6 oz pur e alcohol) PHQ-2 Answer Date Recorded Patient Health Questionnaire-2 Score 0 12/04/2024 Comments No Sex and Gender Information Value Date Recorded Sex Assigned at Female 09/19/2024 9:13 AM SCREENING REPRESENTATIVE Legal Sex Female 10:55 PM CDT Gender Identity Not on file Sexual Orientation Not on file documented as of this encounter Plan of Treatment Upcoming Encounters Date Type Department Care Team (Late Contact Info) Description 05/29/2025 8:40 AM CDT Laboratory Only [facility] Family & Internal Medicine - [address] [phone] Oscar Blake MD [address] [place] [address] 02/11/2026 1:40 PM CDT Office Visit [facility] - [facility] [address] [facility] [place] [address] Keith Garrett MD [address] [place] [address] documented as of this encounter Visit Diagnoses Not on filedocumented in this encounter Additional Health Concerns Infection Onset Date Last Indicated Resolved Time Respiratory Rule Out 02/06/2025 02/06/2025 025 2:10 PM CDT Assessment Noted Time PHQ-9 Depression Total Score: 21 024 1:19 PM CDT documented as of this encounter Care Teams Psychology Assistant Relationship Specialty Start Date End Date Oscar Blake MD [address] [place] [address] PCP - General INTERNAL MEDICINE 10/13/23 documented as of this encounter
--- OUTSIDE RECORDS SUMMARY | 2025-05-10 15:06 | XMS_ITS | Clinical Summary ---
Author Organization [facility] Address [address] [place] [address] Care Team Providers Care Rotary Drill Operator Name Role Phone Oscar Blake MD Primary Care Provider [phone] Allergies Active Allergy Reactions Criticality Noted Date [...] Comments Blood Pressure 120/82 07/29/2024 1:54 PM PROGRAM ENGINEER Pulse 75 07/14/2024 6:45 PM PROGRAM ENGINEER Temperature 37.4 C (99.4 F) 07/14/2024 6:15 PM PROGRAM ENGINEER Respiratory Rate 19 07/14/2024 6:15 PM PROGRAM ENGINEER Oxygen Saturation 100% 07/14/2024 6:45 PM PROGRAM ENGINEER Inhaled Oxygen Concentration - - Weight 65.3 kg (144 lb) 07/29/2024 1:54 PM PROGRAM ENGINEER Height 160 cm (5' 3) 07/29/2024 1:54 PM PROGRAM ENGINEER Body Mass Index 25.51 07/29/2024 1:54 PM PROGRAM ENGINEER Plan of Treatment Health Maintenance Due Date [...] 04/14/2023, 04/07 Medical Devices Implanted Type Area Complex Manager Device Identifier Shelf Expiration Date Model / [...] Detected LETICIA GALVEZ Comment:Testing performed by : [facility], [address] [place] [address]., [id number] N. gonorrhoeae Not Detected Not Detected LETICIA GALVEZ Comment: Interpretive Data Testing performed by the [facility]. This assay detects Chlamydia trachomatis and Neisseria gonorrhoeae by nucleic acid amplification testing (NAAT). This test is approved by the [facility] Food and Drug Administration and the performance characteristics have been verified by the laboratory. The performance characteristics of this test have not been evaluated in individuals less than 14 years of age. Current Interpretive Data was last revised on 2019. Testing performed by: [facility], [address] [place] [address]., [id number] Vaginal 05/24/2023 4:05 PM CDT 05/25/2023 8:42 PM CDT us Radha Mcqueen MD LAB MICROBIOLOGY - GENERAL ORDERABLES Final Result LETICIA [address] [facility] Department [place] [address] * Hepatitis panel, acute (06/30/2022 [...] on 19. Hep C Ab Nonreactive Nonreactive [facility] Comment: Interpretive Data Nonreactive: Antibodies [...] last revised on 2019. HepBsAg Nonreactive Nonreactive [facility] Blood 06/30/2022 1:54 PM CDT 06/30/2022 7:06 PM CDT Radha Mcqueen MD LAB MICROBIOLOGY - GENERAL ORDERABLES Final Result LETICIA [address] [facility] Department of Laboratories [place], [place] [id number] from Last 3 Months or Most Recently Relevant to Health Maintenance Insurance [facility] [id number] [place] Subscriber Plan / Payer ( fective 2021-) Name:Onelia Tubbsboris Ronak Relation to Subscriber:Child Name:ERICABETH Boris Date of :1976 (Home) Address: [facility] [place] [address] Payer ID:[id number] (NAIC) Type:BC OTHER Address: [address] Care Teams Rotary Drill Operator Relationship Specialty Start Date End Date Oscar Blake MD [address] [place] [address] PCP - General Internal Medicine 03/04/24
--- OUTSIDE RECORDS SUMMARY | 2025-05-10 15:06 | XMS_ITS | Encounter Summary ---
Author Organization [facility] Address [address] [place] [address] Care Team Providers Care Clinical Lab Technologist Name Role Phone Oscar Blake MD Primary Care Provider [phone] Encounter Details Date Type Department Care Team (Late Contact Info) Description 02/17/2025 [employer] Message Enc [address], [address] [place] [phone] Mychart, [facility] Provider evie Social History Tobacco Use Types Packs/Day Years Used Date Smoking Tobacco: Never Smokeless Tobacco: Never Alcohol Use Standard Drinks/Week Comments Never 0 (1 standard drink = 0.6 oz pur e alcohol) PHQ-2 Answer Date Recorded Patient Health Questionnaire-2 Score 0 02/12/2025 Comments No Sex and Gender Information Value Date Recorded Sex Assigned at Female 09/19/2024 9:13 AM TECHNICAL COMMUNICATOR Legal Sex Female 10:55 PM CDT Gender Identity Not on file Sexual Orientation Not on file documented as of this encounter Plan of Treatment Upcoming Encounters Date Type Department Care Team (Late Contact Info) Description 05/29/2025 8:40 AM CDT Laboratory Only [facility] Family & Internal Medicine [address] [phone] Oscar Blake MD [address] [place] [address] 02/11/2026 1:40 PM CDT Office Visit [facility] - [facility] [address] [facility] [place] [address] Keith Garrett MD [address] [place] [address] documented as of this encounter Visit Diagnoses Not on filedocumented in this encounter Additional Health Concerns Assessment Noted Time PHQ-9 Depression Total Score: 21 024 1:19 PM CDT documented as of this encounter Care Teams Clinical Lab Technologist Relationship Specialty Start Date End Date Oscar Blake MD [address] [place] [address] PCP - General INTERNAL MEDICINE 10/13/23 documented as of this encounter
--- OUTSIDE RECORDS SUMMARY | 2025-05-10 15:06 | XMS_ITS | Encounter Summary ---
Author Organization [facility] Address [address] [place] [address] Care Team Providers Care Harbor Pilot Name Role Phone Cassidy Busby MD, Miguel A Primary Care Provider [phone] Oscar Blake MD Primary Care Provider [phone] Encounter Details Date Type Department Care Team (Late st Contact Info) Description 04/04/2023 Hospital Orders Only [facility] Med/Surg [address] [place], [place] [phone] Manpreet Kay MD [facility] [address] [address] Social History Tobacco Use Types Packs/Day Years Used Date Smoking Tobacco: Never Assessed Comments No Sex and Gender Information Value Date Recorded Sex Assigned at Female 09/19/2024 9:13 AM PRODUCTION REPRODUCTION MANAGER Legal Sex Female 10:55 PM CDT Gender Identity Not on file Sexual Orientation Not on file documented as of this encounter H&P Notes * Manpreet Kay MD - 04/04/2023 7:40 AM CDT Martha Tubbs 17-year-old female Date of Service: 04/04/2023 CHIEF COMPLAINT: Right breast mass HPI: Presents with self palpated right breast mass. No prior breast procedures. No other symptoms. PMH: No past medical history on file. Asthma PSH: No past surgical history on file. [place] teeth removal ALL: Allergies Allergen Reactions Erythromycin [...] [facility] - [address] [address] Oscar Blake MD [address] [place] [address] 02/11/2026 1:40 PM CDT Office Visit [facility] Multispecialty Care - [address] [place] [address] Keith Garrett MD [address] [facility] [address] [place] [address] documented as of this encounter Visit Diagnoses Not on filedocumented in this encounter Additional Health Concerns Infection Onset Date Last Indicated Resolved Time Respiratory Rule Out 02/06/2025 02/06/2025 025 2:10 PM CDT documented as of this encounter Care Teams Harbor Pilot Relationship Specialty Start Date End Date Miguel A Benjamin MD [address] [facility] [address] [address] [place] [address] PCP - General PEDIATRICS 05/29/22 10/12/23 Oscar Blake MD [address] [place] [address] PCP - General INTERNAL MEDICINE 10/13/23 documented as of this encounter
--- OUTSIDE RECORDS SUMMARY | 2025-05-10 15:06 | XMS_ITS | Encounter Summary ---
Author Organization [facility] Address [address] [place] [address] Care Team Providers Care Clinical Fellow Name Role Phone Oscar Blake MD Primary Care Provider [phone] Encounter Details Date Type Department Care Team (Late Contact Info) Description 05/27/2024 [employer] Message Enc [facility] Family & Internal Medicine [phone] [place] [address] [facility] Provider Results Social History Tobacco Use Types Packs/Day Years Used Date Smoking Tobacco: Never Smokeless Tobacco: Never Alcohol Use Standard Drinks/Week Comments Never 0 (1 standard drink = 0.6 oz pur e alcohol) PHQ-2 Answer Date Recorded Patient Health Questionnaire-2 Score 4 2024 Comments No Sex and Gender Information Value Date Recorded Sex Assigned at Female 09/19/2024 9:13 AM TECHNOLOGY DIRECTOR Legal Sex Female 10:55 PM CDT Gender Identity Not on file Sexual Orientation Not on file documented as of this encounter Plan of Treatment Upcoming Encounters Date Type Department Care Team (Late Contact Info) Description 05/29/2025 8:40 AM CDT Laboratory Only [facility] Family & Internal Medicine [facility] [address] [place] [address] Oscar Blake MD [address] [place] [id number] 02/11/2026 1:40 PM CDT Office Visit [facility] Care - [address], [address] [place] [address] Keith Garrett MD [address] [facility] [address] [place] [address] documented as of this encounter Visit Diagnoses Not on filedocumented in this encounter Additional Health Concerns Infection Onset Date Last Indicated Resolved Time Respiratory Rule Out 02/06/2025 02/06/2025 025 2:10 PM CDT Assessment Noted Time PHQ-9 Depression Total Score: 21 024 1:19 PM CDT documented as of this encounter Care Teams Clinical Fellow Relationship Specialty Start Date End Date Oscar Blake MD [address] [place] [address] PCP - General INTERNAL MEDICINE 10/13/23 documented as of this encounter
--- OUTSIDE RECORDS SUMMARY | 2025-05-10 15:06 | XMS_ITS | Clinical Summary ---
Author Organization [facility] Address [facility] [place] [address] Care Team Providers Care Casing Flusher Name Role Phone Oscar Blake MD Primary Care Provider [phone] Allergies Active Allergy Reactions Criticality Noted Date [...] Care Team Description 04/10/2025 MyChart Message Enc [facility] Family Internal [address] [address] Oscar Blake MD Labs ordered 04/09/2025 9:20 AM CDT Allied Health/Nurse Visit [facility] Internal [address] [address] Oscar Blake MD Tuberculosis (Tb test read) 04/09/2025 Travel 04/07/2025 2:00 PM CDT Allied Health/Nurse Visit [facility] Internal [address] [address] Oscar Blake MD Allied Health Visit (TB skin test) 04/07/2025 Travel 03/29/2025 MyChart Message Enc [facility] Internal [address] [address] Oscar Blake MD Vitamins/Hormones 03/03/2025 10:00 AM CDT Office Visit [facility] Internal [address] [address] Oscar Blake MD Physical 03/03/2025 Travel 02/17/2025 MyChart Message Enc [facility] Mult[facility]pecialty Care - [facility] [address] [place] [phone] [facility] Provider [email or web address] 02/12/2025 1:00 PM CDT [facility] [address] [place] [phone] Keith Garrett MD Follow Up (pentasa) 02/12/2025 Travel from Last 3 Months Immunizations Immunization Administration Dates Next Due [id number] (Pediarix) 2003 Dtap (Generic) 04/06/2009, 5,2003,06/29 FLUCELVAX [...] Sex Assigned at Female 09/19/2024 9:13 AM TUCKING MACHINE OPERATOR Legal Sex Female 10:55 PM CDT Gender [...] Description 05/29/2025 8:40 AM CDT Laboratory Only [facility] Family & Internal Medicine - [phone] [place] [address] Osacr Blake MD [address] [place] [address] 02/11/2026 1:40 PM CDT Office Visit [facility] Multispecialty Care - [address] [place] [address] Keith Garrett MD [address] [place] [address] [address] [place] [address] Health Maintenance Due Date Last Done Comments [...] , 06/29/2022, Additional history exists PHQ-2 (Physician Bishop) Completed 02/12/2025 Pneumococcal Vaccine: Pediatrics (0 to 5 Years) and At-Risk Patients (6 to 49 Years) Completed 03/03/2025, 05/11/2004, 02/09/2004, Additional history exists RSV Immunizations Under 20 Months Aged Out No longer eligible based on patient's age to complete this topic Medical Devices Implanted Type Area Plodding Machine Operator Device Identifier Shelf Expiration Date Model / [...] Final Result from Last [address] [facility] Care Teams Casing Flusher Relationship Specialty Start Date End Date Oscar Blake MD [address] [place] [address] PCP - General INTERNAL MEDICINE 10/13/23
[2025-05-10 15:25] LABS: INR 1.1; Partial Thromboplastin Time 28.5 Seconds (22.3-36.8); Prothrombin Time 14.4 Seconds (11.1-14.7)
[2025-05-10] MEDS: SODIUM CHLORIDE 0.9% IV 1,000 ML 999 ML IV CONT (16:07)
--- NOTE | 2025-05-10 16:29 | ED_ITS ---
HPI - SOB/Dyspnea General Chief Complaint: Shortness of Breath/Dyspnea Stated Complaint: sob Time Seen by Provider: 05/10/25 14:53 Source: patient Mode of arrival: ambulatory Limitations: no limitations History of Present Illness HPI Narrative: Patient is a 20-year-old female who presents the ED with report of shortness of breath. Patient reports she woke up this morning feeling increasingly short of breath. Began trying to clean her house including vacuuming and mopping her floor is and felt increasingly short of breath. [place] as though her heart was racing, palpitations. Began having slight discomfort/tightness throughout left- sided chest which has since resolved. She has history of anxiety and that she may be having a panic attack. She took her hydroxyzine at home, but denied improvement of symptoms. Prompted here for further evaluation. Does have history of asthma, but denied wheezing. Denies pain or swelling in legs, cough/URI symptoms. Related Data Home Medications ?Medication ?Instructions ?Recorded ?Confirmed ?Last Taken ?Type fexofenadine 60 mg tablet (Alyssa 60 mg PO Q12H 11/2012/30/24 Unknown History Allergy) fluoxetine 10 mg tablet mg PO 11/20/24 12/30/24 Unkn own History lamotrigine 25 mg tablet mg PO 11/20/24 12/30/24 Unkn own History levonorgestrel (Mirena) 1 device intrauterine ONCE 0 12/30/24 12/30/24 Unknown History Allergies Allergy/AdvReac Type Severity Reaction Status Date / Time erythromycin base AdvReac Intermediate Hives Verified 05/10/25 14:09 Review of Systems 2 Review of Systems: All systems reviewed & are unremarkable except as noted in HPI. All systems reviewed & are unremarkable except as noted in HPI and below PMFSH Past Medical History Medical History Encounter for insertion of ParaGard IUD Asthma Anxiety Allergies Surgical History Surgical History H/O ovarian cystectomy 2023 Family History Family History Grandparent Brain cancer Pancreatic cancer Mother Depression Sibling Depression Social History Social History Smoking status: Never smoker Alcohol intake: never Substance use: never Substance use type: does not use Current Housing: Decline to Answer Concerned About Future Housing: Decline to Answer Difficulty Paying Gas/Electric Bills: Decline to Answer Difficulty Paying for Meds: Decline to Answer Currently Unemployed: Decline to Answer Education: Decline to Answer Difficulty w/ Childcare or Family Care: Decline to Answer Living arrangements: alone Occupation/Education: occupation Gender identity (if verbalized by the patient): Female Sexual Orientation (if Verbalized by the Patient): Straight or Heterosexual Exam 2 Narrative: GENERAL: Well appearing, well-nourished, non-toxic, in no acute distress. HEAD: Normocephalic, atraumatic. RESPIRATORY: Airway patent, respirations nonlabored. Clear to auscultation bilaterally, no rales, rhonchi, wheezing. CARDIOVASCULAR: Borderline tachycardic with regular rhythm without murmurs, rubs, or gallops. MUSCULOSKELETAL: Moves all extremities. No gross deformities. No peripheral edema. SKIN: Warm, dry, normal color. NEURO: A&O X3. Speech clear. Cranial nerves II-XII grossly intact. Steady gait. No ataxic movements. PSYCHIATRIC: Appropriate mood and affect. Normal interaction. Course Vital Signs Vital signs: Vital Signs Temperature 97.8 F 05/10/25 14:09 Pulse Rate 134 H 05/10/25 14:09 Respiratory Rate 15 05/10/25 14:09 Blood Pressure 167/98 H 05/10/25 14:09 Pulse Oximetry 99 05/10/25 14:09 Oxygen Delivery Room Air 05/10/25 14:09 Temperature 98.2 F 05/10/25 17:44 Pulse Rate 83 05/10/25 17:44 Respiratory Rate 18 05/10/25 17:44 Blood Pressure 105/68 05/10/25 17:44 Pulse Oximetry 100 05/10/25 17:44 Oxygen Delivery Room Air 05/10/25 14:14 MDM - SOB/Dyspnea MDM Narrative Medical decision making narrative: Patient presented to ED with increased shortness breath began this morning, history of anxiety, asthma. Patient was noted to be tachycardic upon arrival. Sinus rhythm. No concerning ST changes on EKG. Remainder of vital signs were within normal range. Fluids were initiated. Laboratory studies without leukocytosis or significant anemia. Stable electrolytes. Mild anion gap of 14. Fluids are ongoing. Stable kidney function. Troponin undetectable. D-dimer within normal range. Chest x-ray is clear. Heart rate did normalize with fluid administration. Down to the 80s. Patient feeling much better. Discussed possible dehydration, anxiety contributing to symptoms. Otherwise feel patient is safe for discharge home at this time. She does feel comfortable with this. In agreement with plan. Discussed strict return precautions. She voiced understanding. Discharged in stable condition. Medical Records Attestation: I reviewed the patient's medical records. Lab Data Attestation: I reviewed the patient's lab results. 05/10/25 14:18 05/10/25 14:18 Labs: Lab Results 05/10/25 Range/Units 14:18 WBC 6.5 (4.5-10.0) K/mm3 RBC 4.91 (4.2-5.4) M/mm3 Hgb 15.5 H (12.0-15.0) g/dL Hct 43.3 (37.0-47.0) % MCV 88.2 (80-100) fl MCH 31.6 (26-34) pg MCHC 35.8 (32-36) g/dl RDW 11.8 (11.5-14.5) % Plt Count 336 (150-375) k/mm3 MPV 8.8 (7.4-10.4) fl Immature Gran % (Auto) 0.2 (0-0.5) % Neut % (Auto) 58.0 (45.5-73.1) % Lymph % (Auto) 30.8 (18.3-44.2) % [place] % (Auto) 9.8 H (2.6-8.5) % Eos % (Auto) 0.3 (0-4.4) % Baso % (Auto) 0.9 (0.2-1.2) % Lymph # (Auto) 2.00 (0.9-3.2) K/mm3 [place] # (Auto) 0.6 (0.1-0.6) K/mm3 Eos # (Auto) 0.0 (0-0.3) K/mm3 Baso # (Auto) 0.1 (0.0-0.1) K/mm3 Abs Immat Gran (auto) 0.01 (0.00-0.031) K/mm3 Absolute Neuts (auto) 3.8 (1.3-6.7) K/mm3 Absolute Nucleated RBC 0.000 (0.0-0.012) K/mm3 Nucleated RBC % 0.0 (0.0-0.2) % PT 14.4 (11.1-14.7) Seconds INR 1.1 APTT 28.5 (22.3-36.8) Seconds D-Dimer < 0.27 (<0.48) ug/mL Sodium 137 (137-145) mmol/L Potassium 3.9 (3.4-5.0) mmol/L Chloride 102 (98-107) mmol/L Carbon Dioxide 21 L (22-30) mmol/L Anion Gap 14 H (4-12) mmol/L BUN 11 (7-17) mg/dL Creatinine 0.94 (0.7-1.0) mg/dL Estim Creat Clear Calc 71 ml/min Estimated GFR > 60 (59 - ) Glucose 105 (65-110) mg/dL Calcium 9.6 (8.4-10.2) mg/dL Total Bilirubin 1.1 (0.2-1.3) mg/dL AST 31 (14-36) U/L ALT 19 (6-35) U/L Alkaline Phosphatase 83 (38-126) U/L Troponin I < 0.012 (0.000-0.034) ng/mL Total Protein 8.6 H (6.3-8.2) g/dL Albumin 5.0 (3.5-5.1) g/dL Imaging Data Attestation: I personally reviewed and interpreted this imaging study as follows: Radiologist's impression: ITS Impressions Chest X-Ray 05/10/25 15:05 Impression: No acute cardiopulmonary abnormality. ECG Data EKG #1: Attestation: I personally reviewed and interpreted this ECG as follows: ECG completion date: 05/10/25 ECG completion time: 14:13 EKG Interpretation: tachycardia (134), sinus rhythm, non-specific ST changes and other (short MO) Discharge Plan Discharge Clinical Impression: Shortness of breath Patient Disposition: Home Condition: Stable Instructions: Antibiotic Form, Dyspnea (ED), Shortness of Breath (ED) Additional Instructions: Your workup here was reassuring. Stay well hydrated. Continue your asthma inhalers as needed. Follow-up with your primary care doctor for further evaluation. Return to the ED if you experience worsening or severe difficulty breathing, worsening chest pain, unable to keep down food or drink, severe dizziness/lightheadedness, or any other symptoms of concern. Patient Language: Prydeinig Prescriptions: No Action Mirena 21 mcg/24hr (up to 8 yrs) 52 mg intrauterine device 1 device intrauterine ONCE Rx Instructions: as a single dose fluoxetine 10 mg tablet PO lamotrigine 25 mg tablet PO fexofenadine [Alyssa Allergy] 60 mg tablet 60 mg PO Q12H Follow-up/Referrals: Lou,Oscar Machuca MD [Primary Care Provider] Stand Alone Forms: Work/School Release IP Time of Disposition: 17:26
== END 2025-05-10 17:48 | disposition home or self-care (01) ==
PROVIDERS: Emergency Medicine; Emergency Provider Physician Assistant; PCP Internal Medicine
DX: R06.02 Shortness of breath (principal); R00.0 Tachycardia, unspecified; J45.909 Unspecified asthma, uncomplicated; F41.9 Anxiety disorder, unspecified
CPT/HCPCS: 36415; 71046; 80053; 84484; 85025; 85380; 85610; 85730; 93005; 96360; 99284; J7030

== ENCOUNTER 2025-05-18 12:36 | Emergency (ER) | payer BC, SELFPAY ==
--- NOTE | 2025-05-18 12:42 | ED_ITS ---
HPI - Female Genitourinary General Chief complaint: Urogenital-Female Stated complaint: STD EXPOSURE Time Seen by Provider: 05/18/25 12:54 Source: patient and RN notes reviewed Mode of arrival: ambulatory Limitations: no limitations History of Present Illness HPI Narrative: 20-year-old female presents with concern for. Reports she had unprotected sex 2 days later she started having vaginal discharge. She denies abdominal pain or back pain. Denies urine frequency or urgency. Reports mild vaginal itching, reports it does not feel like her typical yeast infection itching. MD elicited complaint: UTI Related Data Home Medications ?Medication ?Instructions ?Recorded ?Confirmed ?Last Taken ?Type fexofenadine 60 mg tablet (Alyssa 60 mg PO Q12H 11/2012/30/24 Unknown History Allergy) fluoxetine 10 mg tablet mg PO 11/20/24 12/30/24 Unkn own History lamotrigine 25 mg tablet mg PO 11/20/24 12/30/24 Unkn own History levonorgestrel (Mirena) 1 device intrauterine ONCE 0 12/30/24 12/30/24 Unknown History budesonide-formoterol HFA 80 inhalation 05/18/25 Unkn own History mcg-4.5 mcg/actuation aerosol inhaler fluoxetine 20 mg capsule mg 05/18/25 Unknown History hydroxyzine HCl 10 mg tablet mg 05/18/25 Unknown Hist ory hydroxyzine HCl 25 mg tablet mg 05/18/25 Unknown Hist ory lamotrigine 100 mg tablet mg 05/18/25 Unknown History mesalamine 400 mg capsule (with mg PO 05/18/25 Unknow n History delayed release tablets inside) Allergies Allergy/AdvReac Type Severity Reaction Status Date / Time erythromycin base AdvReac Intermediate Hives Verified 05/18/25 12:44 Review of Systems Review of Systems: CONSTITUTIONAL: Denies malaise, chills, sweats, or fever. CARDIOVASCULAR: Denies chest pain, palpitations, or edema. RESPIRATORY: Denies cough or dyspnea. GASTROINTESTINAL: Denies abdominal pain, nausea, vomiting, diarrhea GENITOURINARY: Reports dysuria, urgency, suprapubic pressure. Denies flank pain or hematuria. Reports vaginal discharge in urine frequency SKIN: Reports mild vaginal itching MUSCULOSKELETAL: Denies back pain or myalgia. All systems reviewed & are unremarkable except as noted in HPI and below PMFSH Past Medical History Medical History Encounter for insertion of ParaGard IUD Asthma Anxiety Allergies Surgical History Surgical History H/O ovarian cystectomy 2023 Family History Family History Grandparent Brain cancer Pancreatic cancer Mother Depression Sibling Depression Social History Social History Smoking status: Never smoker Alcohol intake: never Substance use: never Substance use type: does not use Current Housing: Decline to Answer Concerned About Future Housing: Decline to Answer Difficulty Paying Gas/Electric Bills: Decline to Answer Difficulty Paying for Meds: Decline to Answer Currently Unemployed: Decline to Answer Education: Decline to Answer Difficulty w/ Childcare or Family Care: Decline to Answer Living arrangements: alone Occupation/Education: occupation Gender identity (if verbalized by the patient): Female Sexual Orientation (if Verbalized by the Patient): Straight or Heterosexual Comments At time of signature, agree with nursing past medical, surgical, social and family history. There is no relevant family history pertinent to the presenting complaint Exam Narrative: GENERAL: Well-appearing, well-nourished, and in no acute distress. HEAD: Normocephalic. EYES: PERRLA, conjunctivae clear. NECK: Supple. No lymphadenopathy CHEST: Clear to auscultation. No respiratory distress. HEART: Regular rate and rhythm. ABDOMEN: Soft, nontender upon palpation, nondistended, no palpable or pulsatile masses, no guarding. No CVA tenderness SKIN: Warm, dry, no rash. NEURO: Alert and oriented x3. PSYCH: Normal mood and affect Course Course Emergency Course: Patient is aware of diagnosis, understands and agrees to treatment plan. Anticipatory guidance given. Patient agrees to follow-up as directed and is aware of reasons to seek care at the emergency department. Portions of this record may have been created with voice recognition software Level of Care: Express Care Visit Vital Signs Vital signs: Reviewed. MDM - Female Genitourinary MDM Narrative Medical decision making narrative: Exam findings and UA show no acute concerns or changes; patient is non-toxic appearing and is in no distress. Patient is appropriate for outpatient treatment and follow-up. Differential Diagnosis Differential diagnosis: Likely urinary tract infection and cystitis Critical Care Time Critical Care Time Critical Care Time: No Discharge Plan Discharge Clinical Impression: Possible exposure to STD Patient Disposition: Home Condition: Stable Instructions: Antibiotic Form, Safe Sex Practices (ED) Additional Instructions: You have been tested for potential gonorrhea, chlamydia, and trichomoniasis today. You have received antibiotics to treat gonorrhea today, a prescription has been called into your pharmacy to treat chlamydia and trichomoniasis. You will receive a phone call in 2-3 days with the results of today's testing. It is very important that you avoid unprotected intercourse during treatment and for 7 days AFTER TREATMENT is complete and until your partner(s) have been treated. Please encourage your partner(s) to seek testing and treatment. When you have been exposed to sexually transmitted infections, it is important that you seek comprehensive testing, since we do not provide testing for all sexually transmitted infections. Some infections can have no symptoms, but cause serious health problems. Contact your health care provider or report to the emergency department if: You have genital swelling or pain, or unusual bleeding. You have joint pain, rash, swollen lymph nodes or night sweats. You are severe abdominal pain. You have a fever. Symptoms do not go away or they get worse even after treatment. You have bleeding or pain during sex. Patient Language: Thai Prescriptions: New metronidazole 500 mg tablet 2,000 mg PO ONCE Qty: 4 0RF doxycycline monohydrate 100 mg tablet 100 mg PO BID 7 Days Qty: 14 0RF No Action hydroxyzine HCl 25 mg tablet hydroxyzine HCl 10 mg tablet fluoxetine 20 mg capsule lamotrigine 100 mg tablet budesonide-formoterol 80-4.5 mcg/actuation HFA aerosol inhaler INHALATION mesalamine 400 mg capsule (with del rel tablets) PO Mirena 21 mcg/24hr (up to 8 yrs) 52 mg intrauterine device 1 device intrauterine ONCE Rx Instructions: as a single dose fluoxetine 10 mg tablet PO lamotrigine 25 mg tablet PO fexofenadine [Alyssa Allergy] 60 mg tablet 60 mg PO Q12H Follow-up/Referrals: Tracee Alicea MD [Primary Care Provider, [employer]] Time of Disposition: 13:03
[2025-05-18 12:48] VITALS: BP 115/88; PULSE 78; RESP 16; TEMP 36.2; O2SAT 100
[2025-05-18] MEDS: cefTRIAXone 500 MG, LIDOCAINE 1% LOCAL INJ 1 ML IM (13:12)
[2025-05-18 17:41] LABS: Trichomonas Vag PCR NOT DETECTED (NOT DETECTE)
== END 2025-05-18 13:25 | disposition home or self-care (01) ==
PROVIDERS: Emergency Provider Nurse Practitioner; PCP Obstetrics & Gynecology
DX: N89.8 Other specified noninflammatory disorders of vagina (principal); Z11.3 Encounter for screening for infections with a predominantly sexual mode of transmission; J45.909 Unspecified asthma, uncomplicated; F41.9 Anxiety disorder, unspecified
CPT/HCPCS: 87491; 87591; 87661; 96372; 99213; G0463; J0696; J2003